=== PATIENT | female | born 1985 | race Two or more races ===

== ENCOUNTER 2019-08-31 09:45 | Day surgery (SDC) | payer OTHER ==
[~2019-08-31 09:45] MED LIST: Betamethasone Acetate/Betamethasone Sod Phosphate 30 MG/5 ML MDV EPIDUR ONE; Iopamidol 200-M 10 ML vial ITHECAL ONE; Lidocaine 2% 5 ML SDV INJECT ONE; Ropivacaine 0.5% 5 MG/ML 30 ML SDV INJECT ONE
--- NOTE | 2019-08-31 19:12 | OR ---
SURGEON: Yee Armenta D.O. DATE OF PROCEDURE: 08/31/2019 PRIMARY SURGEON: Yee Armenta D.O. SPEECH THERAPIST TECHNICIAN: OR staff present: 1. Chris Ruffin RN. 2. Isaías Manrique RT. WOUND CLASS: I. PREOPERATIVE DIAGNOSIS: Lumbar facet arthropathy, left L4-5 and L5-S1. POSTOPERATIVE DIAGNOSIS: Lumbar facet arthropathy, left L4-5 and L5-S1. PROCEDURES PERFORMED: 1. Left L4-5 facet joint injection. 2. Left L5-S1 facet joint injection. 3. Fluoroscopic guidance for needle placement. 4. Local with oral Valium for sedation. SCREENING QUESTIONS: The patient answered "No" to all the following questions: 1. Are you allergic to iodine, Betadine or latex? 2. Do you have a bleeding disorder? 3. Are you on anti-inflammatories or blood thinners? 4. Do you have any current local or systemic infections? The patient had the procedure thoroughly explained including risks, benefits and alternatives. Consent was signed in my clinic indicating understanding and willingness to proceed. The patient presented to [facility] and was escorted to the dressing room to disrobe and change into a hospital gown. Preoperative history and screening were performed by my nurse. Vital signs were taken and stable. The patient reported that Valium 10 milligrams was taken prior to the procedure. The patient was brought back to the procedure room and placed in the prone position on the procedure room table. A pillow was placed under the abdomen in order to flatten the lumbar lordosis. The back was prepped with ChloraPrep and sterilely draped. All personnel in the procedure room were dressed in appropriate attire including surgical scrubs, head and shoe covers. This was to ensure sterility while in the treatment room. During the time fluoroscopy was in use all personnel in the operating room wore lead sutton with thyroid collars. Sterile technique was used during the procedure. The fluoroscope was positioned to provide a left oblique view. Then the left L 4-5 and L5-S1 facet blocks were begun by anesthetizing the skin and soft tissues with 2 cubic centimeters of 2% Preservative-Free Lidocaine with a 25-gauge 1.5 inch needle. There were no signs of infection at the sites of needle skin insertions over the target facet joints. Using fluoroscopic guidance, a sterile 22-gauge 3.5 inch spinal needle was positioned at the junction of the "ear of the Sameer dog" at both the level of L4-5 and L5-S1 facet joints Precise needle placement was confirmed by both AP and lateral views under fluoroscopy and in addition with 0.2 cubic centimeters of IsoVue-200 contrast dye which was injected through microbore tubing under live fluoroscopy and showed no intravascular flow pattern and adequate flow over the target L4-5 and L5-S1 facet joints. Then 1 mL of a mixture of Celestone and 0.5% Ropivacaine Preservative-Free was injected slowly at each level without complications after negative aspiration. The procedures were well tolerated and vital signs were stable during and after the procedure. The staff escorted the patient to the recovery area. The patient was given both oral and written discharge and followup instructions. The patient will follow up with a pain diary which will be evaluated over this evening doing things that would normally cause pain. We will evaluate the efficacy of the facet blocks as the patient will follow up in the clinic in 4 weeks with a pain diary The patient was given both oral and written discharge and followup instructions. The patient voiced understanding including understanding of those signs and symptoms that would require emergency care and knows how to contact the office if there are any questions or concerns in the meantime. PREOPERATIVE PAIN: 8/10. POSTOPERATIVE PAIN: 0/10. FOLLOWUP: Follow up in the Pain Clinic in 4 weeks. ANDREY / GABRIEL /[id number]
== END 2019-08-31 13:14 | disposition home or self-care (01) ==
LOC: MW.SDS 09:45
PROVIDERS: ATTEND Anesthesiology
DX: M47.816 Spondylosis without myelopathy or radiculopathy, lumbar region (principal); M47.817 Spondylosis without myelopathy or radiculopathy, lumbosacral region; M79.18 Myalgia, other site; M51.36 Other intervertebral disc degeneration, lumbar region; F32.9 Major depressive disorder, single episode, unspecified; Z87.891 Personal history of nicotine dependence; Z79.899 Other long term (current) drug therapy
CPT/HCPCS: 64493; 64494; J0702